=== PATIENT | female | born 1965 | race Caucasian/White ===

== ENCOUNTER 2021-01-12 15:10 | Outpatient (CLI) | payer BC | END 2021-01-12 15:11 | disposition home or self-care (01) | LOC: CSHMAMMO 15:10 | PROVIDERS: ATTEND Family Medicine | DX: Z13.820 Encounter for screening for osteoporosis (principal); N95.9 Unspecified menopausal and perimenopausal disorder | CPT/HCPCS: 77080 ==

== ENCOUNTER 2023-09-30 10:39 | Outpatient (CLI) | payer BC | END 2023-09-30 10:40 | disposition home or self-care (01) | LOC: CSHMAMMO 10:39 | PROVIDERS: ATTEND Family Medicine | DX: Z12.31 Encounter for screening mammogram for malignant neoplasm of breast (principal) | CPT/HCPCS: 77063; 77067 ==